=== PATIENT | female | born 1985 | race Hispanic/Latino ===

== ENCOUNTER 2020-11-13 16:32 | Inpatient (IN) | payer MEDICAID, OTHER, SELFPAY ==
[2020-11-13] MEDS ORDERED: hydrALAZINE 20 MG/ML VIAL SLOW IVP PRN ×2 (17:11→23:29)
[2020-11-13] MEDS ORDERED: Ondansetron PF 4 MG/2 ML Vial IVP PRN ×2 (17:11→23:29)
[2020-11-13] MEDS ORDERED: Promethazine HCl 25 MG/ML VIAL IM PRN ×2 (17:11→23:29)
[2020-11-13] MEDS ORDERED: Ibuprofen 800 MG TAB PO PRN (17:11)
[2020-11-13] MEDS ORDERED: Butorphanol Tartrate 1 MG/ML VIAL SLOW IVP PRN (17:11)
[2020-11-13] MEDS ORDERED: Misoprostol 200 MCG TAB PR PRN (17:11)
[2020-11-13] MEDS ORDERED: HYDROcodone/Acetaminophen 5/325 mg Tablet PO PRN ×3 (17:11→23:29)
[2020-11-13] MEDS ORDERED: Carboprost 250 MCG/ML AMP IM PRN (17:11)
[2020-11-13] MEDS ORDERED: Lidocaine 1% (PF) 30 ML VIAL SC PRN (17:11)
[2020-11-13] MEDS ORDERED: Diphenoxylate HCl/Atropine Tablet PO PRN (17:11)
[2020-11-13] MEDS ORDERED: Methylergonovine 0.2 MG/ML VIAL IM PRN (17:11)
[2020-11-13] MEDS ORDERED: Lactated Ringer's 1,000 ML IV SCH (17:15)
[2020-11-13 17:55] LABS: Hemoglobin 10.9 g/dL (12.0-15.5); Mean Corpuscular HGB CONC 33.7 g/dL (32.0-36.0); Mean Corpuscular Hemoglobin 28.4 pg (27.0-33.0); Mean Corpuscular Volume 84.1 fl (81.6-98.3); Mean Platelet Volume 9.8 fl (7.4-10.4); Platelet Count 303 10x3/uL (150-450); RBC Distribution Width 13.2 % (11.5-14.5); Red Blood Cell (RBC) Count 3.84 10x6/uL (3.90-5.03); White Blood Cell (WBC) Count 6.5 10x3/uL (3.5-10.5)
[2020-11-13 18:09] VITALS: BMI 38.0
[2020-11-13] MEDS ORDERED: NS w/ Oxytocin 30 units 500 ML IV PRN (18:10)
[2020-11-13] MEDS ORDERED: NS w/ Oxytocin 30 units 500 ML IVPB SCH ×2 (18:15)
[2020-11-13 18:29] LABS: Hep B Surf Ag Non-Reactive S/CO (NonReactive); Syphilis Antibody Nonreactive (Nonreactive); Syphilis Antibody Index 0.29 S/CO (<1.00 Non-Reactive)
[2020-11-13 18:32] LABS: HBSAg Index 0.18 S/CO (0-0.99)
[2020-11-13] MEDS ORDERED: Lanolin Ointment 7 GM TUBE TOP PRN (23:29)
[2020-11-13] MEDS ORDERED: diphenhydrAMINE 25 MG CAP PO PRN (23:29)
[2020-11-13] MEDS ORDERED: Bisacodyl 10 MG SUPP PR PRN (23:29)
[2020-11-13] MEDS ORDERED: Milk Of Magnesia 30 ML UDCUP PO PRN (23:29)
[2020-11-13] MEDS ORDERED: Preparation H Ointment 28 GM TUBE PR PRN (23:29)
[2020-11-13] MEDS ORDERED: NS / Oxytocin 40 units/1000ml 1,000 ML IV SCH (23:29)
[2020-11-13] MEDS ORDERED: Benzocaine-Menthol 82.5 ML CAN TOP PRN (23:29)
[2020-11-14] MEDS: Ibuprofen 800 MG TAB PO SCH ×4 (00:21→21:23)
[2020-11-14] MEDS: Docusate Calcium (SURFAK) 240 MG CAP PO SCH ×3 (00:21→21:23)
[2020-11-14 02:36] LABS: SARS-CoV-2 PCR by NAA Not Detected (NotDetected)
[2020-11-14] MEDS: Ferrous Sulfate 325 MG TAB PO SCH ×2 (08:47→18:21)
[2020-11-14] MEDS: Prenatal Vitamin 1 TAB PO SCH (08:54)
[2020-11-14] MEDS ORDERED: Adacel (T-DAP) 0.5 ML SYRINGE IM ONE (09:00)
[2020-11-15] MEDS: Ibuprofen 800 MG TAB PO SCH (05:12)
[2020-11-15] MEDS: Ferrous Sulfate 325 MG TAB PO SCH (07:34)
[2020-11-15] MEDS: Prenatal Vitamin 1 TAB PO SCH (09:30)
[2020-11-15] MEDS: Docusate Calcium (SURFAK) 240 MG CAP PO SCH (09:30)
[2020-11-15 10:15] VITALS: BP 107/58; TEMP 97.9
== END 2020-11-15 13:04 | disposition home or self-care (01) | DRG 807 ==
LOC: CSHLD/OP 16:32 → CSHLD 18:07 → CSHPP 23:14
PROVIDERS: ADMIT Family Medicine; ATTEND Family Medicine
PROC: 10E0XZZ Delivery of Products of Conception, External Approach (ICD-10-PCS; principal; 2020-11-13)
PROC: 0W8NXZZ Division of Female Perineum, External Approach (ICD-10-PCS; 2020-11-13)
DX: O80 Encounter for full-term uncomplicated delivery (principal); Z37.0 Single live birth; Z20.822 Contact with and (suspected) exposure to COVID-19; Z3A.38 38 weeks gestation of pregnancy
CPT/HCPCS: 36415; 85027; 86780; 86850; 86900; 86901; 87340; 87635; J0595; J2590; U0003; U0005